=== PATIENT | female | born 2000 | race Caucasian/White ===

== ENCOUNTER 2024-09-08 20:48 | Emergency (ER) | payer OTHER, SELFPAY ==
[2024-09-08 20:54] VITALS: BP 133/97; PULSE 123; RESP 18; TEMP 36.2; O2SAT 98; BMI 23.9
--- NOTE | 2024-09-08 20:59 | ECG_ITS ---
Test Reason : ETOH WITHDRAWAL Blood Pressure : */* mmHG Vent. Rate : 110 BPM Atrial Rate : 110 BPM P-R Int : 126 ms QRS Dur : 76 ms QT Int : 314 ms P-R-T Axes : 42 56 48 degrees QTcB Int : 424 ms Sinus tachycardia Otherwise normal ECG No previous ECGs available Referred By: Karian Carr Electronically Signed By: HELEN WHITLOCK
[2024-09-08 21:22] LABS: MANUAL DIFF FLAG NO
[2024-09-08 21:23] LABS: Basophils Percent Auto 0.5 % (0-2); Eosinophils Percent Auto 0.2 % (0-4); Hematocrit 43.9 % (37.0-47.0); Imm Gran Abs Auto 0.01 X10*3/uL (0.00-0.03); Imm Gran Pct Auto 0.2 % (0.0-0.4); Lymphocytes Absolute Auto 2.1 X10*3/uL (1.2-4.9); Lymphocytes Percent Auto 31.6 % (20-40); Mean Corpuscular HGB Conc 36.4 g/dl (31.0-35.0); Mean Corpuscular Hemoglobin 33.5 pg (27.0-33.0); Mean Platelet Volume 8.6 fL (9.4-12.3); Monocytes Absolute Auto 0.5 X10*3/uL (0.1-1.2); Monocytes Percent Auto 7.3 % (2-11); Neutrophils Absolute Auto 3.9 x10*3/uL (2.0-8.3); Neutrophils Percent Auto 60.2 % (45-73); Platelet Count 135 X10*3/uL (160-400); Red Blood Count 4.77 X10*6/uL (4.20-5.50); Red Cell Distribution Width 13.5 % (11.0-16.0); White Blood Count 6.5 X10*3/uL (4.8-10.8)
[2024-09-08 21:37] LABS: Alanine Aminotransferase 21 U/L (0-31); Albumin Level 4.5 g/dL (3.5-5.0); Alkaline Phosphatase 93 U/L (39-117); Anion Gap 13 (12-20); Aspartate Amino Transferase 37 U/L (5-31); Bilirubin Total 0.6 mg/dL (0.0-1.0); Blood Urea Nitrogen 7 mg/dL (9-16); Calcium 9.5 mg/dL (8.4-10.2); Carbon Dioxide 24 mmol/L (22-29); Chloride 108 mmol/L (96-108); Creatinine Clr Calc Pharmacy 111.9; Estimated Glomerular Filt Rate > 60; Ethanol 284 mg/dL; Glucose Random 130 mg/dL (60-115); Lipase 29 U/L (8-78); Magnesium 1.8 mg/dL (1.6-2.6); Potassium 3.3 mmol/L (3.3-5.1); Sodium 142 mmol/L (135-145); Total Protein 8.3 g/dL (6.5-8.0)
[2024-09-08 21:58] VITALS: BP 149/95; PULSE 98; RESP 20; TEMP 36.9; O2SAT 98
--- NOTE | 2024-09-08 22:02 | MHC.EDTECH ---
This pct just assumed care of Patient ,vitals taken,Patient was hooked up to monitoring manager ,Patient got change into hospital attire ,all safety measure in Place ,Patient mom at bedside .
[2024-09-08 23:27] VITALS: BP 149/95; PULSE 98; RESP 20; TEMP 36.9; O2SAT 98
--- NOTE | 2024-09-08 23:27 | PC.NURSE ---
when going to assess pt, pt noted to no longer be in room, gown on bed and belongings noted to be gone. cupola charger aware and jordy duvall aware.
--- NOTE | 2024-09-09 03:49 | ED.GENADULT ---
HPI - General Adult General Chief complaint: ETOH/Substance Use Stated complaint: ETOH wants to be seen Time Seen by Provider: 09/08/24 22:15 Source: patient Limitations: other ( intoxication) History of Present Illness ED Provider: Carine Holliday PA-C HPI narrative: 24-year-old female with a history of alcohol abuse, bipolar disorder presents requesting detox. Patient states she has been consuming 10 nips of hard alcohol daily, her last drink was prior to arrival. Patient also admits to not adherence with her medications she uses a treat her bipolar disorder. She is requesting STD testing as well . She does not believe she has risk for , her last menstrual cycle was 1 week ago. Denies SI or HI. History somewhat limited as the patient's mood is labile, she is somewhat uncooperative. Related Data Allergies Allergy/AdvReac Type Severity Reaction Status Date / Time No Known Allergies Allergy Verified 09/08/24 20:57 Review of Systems Review of Systems: Yes all other systems are reviewed and are negative Constitutional: Constitutional: Denies fatigue and Denies fever(s) Cardiovascular: Cardiovascular: Denies chest pain Gastrointestinal: Gastrointestinal: Denies abdominal pain, Denies nausea and Denies vomiting Endocrine: Endocrine: Denies fatigue PMFSH Past Medical History Attestation statement: The following information was validated with the patient. Social History Social History Advance Directives: No Advance Directives Information Provided: No Do you have a plan to hurt others: No Plan Physical Exam ED Vital Signs: Vital Signs - 24 hr 09/08/24 20:54 09/08/24 21:58 Temperature 97.1 F 98.5 F Pulse Rate 123 H 98 Respiratory Rate 18 20 Blood Pressure 133/97 H 149/95 H Pulse Oximetry 98 98 Oxygen Delivery Method Room Air Room Air BMI result Body Mass Index 23.9 Const Other: Awake, appears older than stated age Orientation/consciousness: patient oriented x3 HENMT Other: alcohol halitosis Resp Effort & Inspection: normal respiratory effort Cardio Other: normal peripheral perfusion Skin Other: warm dry no rash Neuro General: patient oriented x3, gait normal, no focal motor deficits and CN's II-XI intact bilaterally Psych Other: cooperative Course Reevaluation(s) Reevaluation #1: remainder of labs including a urine preg urinalysis not obtained as the patient eloped while waiting for the cheerleading coach/care team.... to note, when she eloped, her mother was at bedside with her Medical Decision Making Medical Decision Making MDM Narrative: 24-year-old female with a history of alcohol abuse, bipolar disorder presents requesting detox. Patient states she has been consuming 10 nips of hard alcohol daily, her last drink was prior to arrival. Patient also admits to not adherence with her medications she uses a treat her bipolar disorder. She is requesting STD testing as well . She does not believe she has risk for , her last menstrual cycle was 1 week ago. History somewhat limited as the patient's mood is labile, she is somewhat uncooperative. problem: Substance abuse, bipolar disorder History: Per patient I have considered the following differential diagnoses: SI, HI, decompensated psychiatric illness, drug/ alcohol intoxication Plan: The patient admits to nonadherence with her medications, I will also be placing a care team consult, perhaps she will require a dual diagnosis bed, this would be reasonable. Screening labs including drug screen and ethanol we will be obtained. I will have further discussion with the patient over STD testing once she is sober. I have independently reviewed the following tests: Labs: No leukocytosis, not anemic, no electrolyte abnormality, ethanol 284, Lab Data 09/08/24 21:15 09/08/24 21:15 Labs: Lab Results 09/08/24 Range/Units 21:15 WBC 6.5 (4.8-10.8) X10*3/uL RBC 4.77 (4.20-5.50) X10*6/uL Hgb 16.0 (12.0-16.0) g/dl Hct 43.9 (37.0-47.0) % MCV 92.0 (80.0-98.0) fL MCH 33.5 H (27.0-33.0) pg MCHC 36.4 H (31.0-35.0) g/dl RDW 13.5 (11.0-16.0) % Plt Count 135 L (160-400) X10*3/uL MPV 8.6 L (9.4-12.3) fL Immature Gran % (Auto) 0.2 (0.0-0.4) % Neut % (Auto) 60.2 (45-73) % Lymph % (Auto) 31.6 (20-40) % [place] % (Auto) 7.3 (2-11) % Eos % (Auto) 0.2 (0-4) % Baso % (Auto) 0.5 (0-2) % Lymph # (Auto) 2.1 (1.2-4.9) X10*3/uL [place] # (Auto) 0.5 (0.1-1.2) X10*3/uL Eos # (Auto) 0.0 (0.0-0.4) X10*3/uL Baso # (Auto) 0.0 (0.0-0.2) X10*3/uL Abs Immat Gran (auto) 0.01 (0.00-0.03) X10*3/uL Absolute Neuts (auto) 3.9 (2.0-8.3) x10*3/uL Absolute Nucleated RBC 0.000 (0.0-0.012) X10*3/uL Nucleated RBC % (auto) 0.0 (0.0-0.2) /100WBC Sodium 142 (135-145) mmol/L Potassium 3.3 (3.3-5.1) mmol/L Chloride 108 (96-108) mmol/L Carbon Dioxide 24 (22-29) mmol/L Anion Gap 13 (12-20) BUN 7 L (9-16) mg/dL Creatinine 0.63 (0.5-1.4) mg/dL Estim Creat Clear Calc 111.9 Estimated GFR > 60 Random Glucose 130 H (60-115) mg/dL Calcium 9.5 (8.4-10.2) mg/dL Magnesium 1.8 (1.6-2.6) mg/dL Total Bilirubin 0.6 (0.0-1.0) mg/dL AST 37 H (5-31) U/L ALT 21 (0-31) U/L Alkaline Phosphatase 93 (39-117) U/L Total Protein 8.3 H (6.5-8.0) g/dL Albumin 4.5 (3.5-5.0) g/dL Lipase 29 (8-78) U/L Ethyl Alcohol 284 mg/dL Discharge Plan Discharge Clinical Impression: Alcoholic intoxication Patient Disposition: Elopement Interventions: ED Discharge Assessment Last Done: 09/08/24 23:27 Discharge Date/Time: 09/08/24 23:27 Print Language: Vietnamese
== END 2024-09-08 23:27 | disposition left against medical advice (07) ==
PROVIDERS: Physician Assistant Medical; Emergency Provider Emergency Medicine; PCP Physician Assistant
DX: F10.239 Alcohol dependence with withdrawal, unspecified (principal); F31.9 Bipolar disorder, unspecified; R00.0 Tachycardia, unspecified; Z51.81 Encounter for therapeutic drug level monitoring; Y90.8 Blood alcohol level of 240 mg/100 ml or more; Z20.2 Contact with and (suspected) exposure to infections with a predominantly sexual mode of transmission; Z79.899 Other long term (current) drug therapy
CPT/HCPCS: 36415; 80053; 80307; 83690; 83735; 85025; 93005; 99284

== ENCOUNTER → 2024-09-08 20:59 | Outpatient (BNV) | payer OTHER, SELFPAY | PROVIDERS: Emergency Provider Emergency Medicine; PCP Physician Assistant; Visit Provider Internal Medicine | DX: R00.0 Tachycardia, unspecified (principal) | CPT/HCPCS: 93010 ==